=== PATIENT | female | born 1975 | race Caucasian/White ===

== ENCOUNTER 2020-03-17 07:00 | Emergency (ER) | payer BC, SELFPAY ==
[2020-03-17 07:01] VITALS: BP 176/81; PULSE 77; RESP 16; TEMP 36.9; O2SAT 98; BMI 32.9
--- NOTE | 2020-03-17 07:18 | XR_ITS ---
PROCEDURE: XR CHEST 2V CLINICAL HISTORY: cough COMPARISON: No exams were available for comparison FINDINGS: The cardiomediastinal silhouette and pulmonary vascularity are within normal limits. The lungs are clear without infiltrates, suspicious nodules, or pleural effusions. No acute bony abnormalities. IMPRESSION: No acute findings. Dictated by: Dr. Eduardo Huitron MD 03/17/2020 07:53 Dr. Eduardo Huitron MD in [place] 03/17/2020 07:53
[2020-03-17 07:30] LABS: Basophils % 0.3 % (0.1-2.0); Eosinophils # 0.1 K/mm3 (0.0-0.4); Eosinophils % 1.7 % (0.1-12.0); Hematocrit 27.9 % (37.0-47.0); Lymphocytes # 1.5 K/mm3 (0.7-4.5); Mean Corpuscular HGB Conc 28.6 g/dL (31.8-35.4); Mean Corpuscular Hemoglobin 18.8 pg (27.0-31.2); Mean Corpuscular Volume 65.6 fl (81-99); Mean Platelet Volume 7.5 fl (7.4-10.4); Monocytes # 0.3 K/mm3 (0.1-1.0); Monocytes % 8.2 % (1.7-9.3); Neutrophils # 1.8 K/mm3 (1.8-7.8); Neutrophils % 49.8 % (37.0-80.0); Platelet Count 269 K/mm3 (142-424); Red Blood Count 4.25 M/mm3 (4.20-5.40); Red Cell Distribution Width 17.1 % (11.5-17.5); White Blood Count 3.6 K/mm3 (4.8-10.8)
[2020-03-17 07:33] LABS: Chloride 105 mmol/L (98-107); Potassium 3.6 mmoL/L (3.5-5.1); Sodium 137 mmol/L (136-145)
[2020-03-17 07:35] LABS: Blood Urea Nitrogen 7 mg/dl (7-17); Creatinine Clearance Estimated 166 mL/min (50-200); Estimated Glomerular Filt Rate 108 ml/min (>60); GFR (African American) 130 ML/MIN (>60)
--- NOTE | 2020-03-17 07:35 | PC.NURSE ---
Dr. Baptiste notified of hgb.
[2020-03-17 07:36] LABS: Alanine Aminotransferase 26 U/L (12-78); Albumin Level 4.3 g/dl (3.5-5.0); Albumin/Globulin Ratio 1.3 (1.1-1.8); Alkaline Phosphatase 97 U/L (38-126); Anion Gap 14.6 mEq/L (5-15); Aspartate Amino Transferase 32 U/L (14-36); Bilirubin,Total 0.4 mg/dl (0.2-1.3); Calcium 9.1 mg/dl (8.4-10.2); Carbon Dioxide 21 mmol/L (22.0-30.0); Globulin 3.4 g/dL (1.3-3.2); Glucose 111 mg/dl (74-100); Total Protein,Serum 7.7 g/dl (6.3-8.2)
[2020-03-17 07:39] VITALS: BP 125/68; PULSE 69; RESP 20; O2SAT 95
--- NOTE | 2020-03-17 08:30 | [facility].EDGENADL ---
ED Disposition Clinical Impression: Viral infection Upper respiratory infection Qualifiers: URI type: unspecified viral URI Qualified Code(s): J06.9 - Acute upper respiratory infection, unspecified Disposition: Home, Self-Care Condition on Discharge: Good Instructions: DI for Acute Bronchitis Referrals: Felix Adamson MD [Primary Care Provider] - - Critical Care Critical Care Time: No Attestation: On 03/17/20, the high probability of a clinically significant, sudden or life threatening deterioration of the following system(s) required my full and direct attention, intervention and personal management. The time I documented below is in addition to time spent performing reported procedures but includes the following listed in this critical care notation. Medical Decision Making - Judd Inquiry Pt receiving controlled substance: No Judd was queried for this patient: No Vital Signs: 03/17/20 07:01 03/17/20 07:39 Temperature 98.4 F Temperature Source Oral Pulse Rate [Left Radial] 77 69 Respiratory Rate 16 20 Blood Pressure [Right Arm] 176/81 H 125/68 Blood Pressure Mean [Right Arm] 112 87 Blood Pressure Source [Right Arm] Automatic Cuff Automatic Cuff Blood Pressure Position [Right Arm] Sitting Sitting 02 Sat by Pulse Oximetry 98 95 Oxygen Delivery Method Room Air - Lab Data Lab Results 03/17/20 07:10: WBC 3.6 L, RBC 4.25, Hgb 8.0 L, Hct 27.9 L, MCV 65.6 L, MCH 18.8 L, MCHC 28.6 L, RDW 17.1, Plt Count 269, MPV 7.5, Neut % (Auto) 49.8, Lymph % (Auto) 40.0, Sutton % (Auto) 8.2, Eos % (Auto) 1.7, Baso % (Auto) 0.3, Neut # (Auto) 1.8, Lymph # (Auto) 1.5, Sutton # (Auto) 0.3, Eos # (Auto) 0.1, Baso # (Auto) 0.0 03/17/20 07:10: Sodium 137, Potassium 3.6, Chloride 105, Carbon Dioxide 21 L, Anion Gap 14.6, BUN 7, Creatinine 0.60, Estimated Creat Clear 166, Estimated GFR 108, Est GFR ( Amer) 130, Glucose 111 H, Calcium 9.1, Total Bilirubin 0.4, AST 32, ALT 26, Alkaline Phosphatase 97, Total Protein 7.7, Albumin 4.3, Globulin 3.4 H, Albumin/Globulin Ratio 1.3 Result diagrams: 03/17/20 07:10 03/17/20 07:10 Orders (Tests/Meds): ED MEDICATIONS Generic Name Dose Route Start Last Admin Trade Name Freq PRN Reason Stop Dose Admin Sodium Chloride 1,000 mls @ 999 mls/hr 03/17/20 07:30 03/17/20 07:27 Sod Chlor 0.9% 1000ml Bag IV 03/17/20 08:30 999 mls/hr .[id number] BUBBA Administration Discontinued Medications Generic Name Dose Route Start Last Admin Trade Name Freq PRN Reason Stop Dose Admin Dexamethasone Sodium Phosphate 10 mg 03/17/20 07:20 03/17/20 07:24 Dexamethasone 4mg/Ml 1ml Vial IV 03/17/20 07:21 10 mg ONCE ONE Administration Ondansetron HCl 4 mg 03/17/20 07:22 03/17/20 07:24 Ondansetron 4mg/2ml Vial IV 03/17/20 07:23 4 mg ONCE ONE Administration ORDERS Category Date Time Status Covid-19 Nasal PCR ([facility]) Routine Lab 03/17/20 07:15 Received - Radiology Data #1 Image(s): Chest Image Reviewed: Yes I reviewed the patient's radiology results Preliminary Findings: Normal/NAD Medical Decision Narrative: 44yo F evaluated for Covid testing. Patient is in no acute distress on presentation. Patient is already been here for an hour and 20 minutes prior to my arrival. Labs are unremarkable except for anemia of unknown etiology or duration. Chest x-ray is negative. At this point the patient is stable and can be discharged home and called with her Covid result. General Adult HPI - General Chief complaint: Upper Respiratory Infection Stated complaint: Congestion Time Seen by Provider: 03/17/20 08:05 Mode of Arrival: Ambulatory Limitations: No Limitations Description of Symptoms (Recalled from ER Triage Doc. by RN): Pt c/o congestion, dry/hacking cough, and diarrhea since wednesday 03/14. Pt denies SOA, fever, N/V, sore throat, loss of taste or smell. - History of Present Illness HPI narrative: 44yo F directed to the emergency department by he
[2020-03-17 08:33] VITALS: BP 154/67; PULSE 63; RESP 20; O2SAT 97
[2020-03-17 08:43] VITALS: BP 154/67; PULSE 87; RESP 18; TEMP 36.7; O2SAT 99
--- NOTE | 2020-03-17 13:41 | PC.NURSE ---
Attempted to call pt listed number 3 times with no answer, answering machine not available
--- NOTE | 2020-03-17 13:43 | PC.NURSE ---
Number listed to notified pt of covid results is not a working number
--- NOTE | 2020-03-17 15:07 | PC.NURSE ---
Pt called for results and notified of her positive covid and quarantine information.
== END 2020-03-17 08:45 | disposition home or self-care (01) ==
PROVIDERS: Emergency Provider Emergency Medicine; PCP Internal Medicine Adolescent Medicine
DX: U07.1 COVID-19 (principal)
CPT/HCPCS: 71046; 80053; 85025; 96365; 96375; 99283; J2405; U0003

== ENCOUNTER 2020-03-27 15:52 | Emergency (ER) | payer BC, SELFPAY ==
[2020-03-27 17:01] VITALS: BP 148/87; PULSE 77; RESP 17; TEMP 36.7; O2SAT 99; BMI 32.4
--- NOTE | 2020-03-27 17:03 | [facility]H.EDUTC ---
[facility] [place] Disposition Clinical Impression: Encounter for laboratory testing for COVID-19 virus Disposition: Home, Self-Care Condition on Discharge: Good Instructions: Preventing the Spread of Coronavirus Discharge Instructions Additional Instructions: You were tested for today for COVID19 your test result should be back in the next 24-48 hours, you may call to the [facility] to see if your test results are back in the next 48 hours [phone] [facility] hours are 9am-9pm You was given a handout with instructions for Self Quarantine and Self isolation for while you wait on test results and what to do if they are positive If you are positive the Health Dept will be contacting you also You may return to work as directed by Health Dept Referrals: Felix Adamson MD [Primary Care Provider] - As needed Forms: Work/School Release Time of Disposition: 17:06 Medical Decision Making - Judd Inquiry Pt receiving controlled substance: No Judd was queried for this patient: No Vital Signs: 03/27/20 17:01 Temperature 98.1 F Temperature Source Oral Pulse Rate [Left] 77 Respiratory Rate 17 Blood Pressure [Right Arm] 148/87 H Blood Pressure Mean [Right Arm] 107 Blood Pressure Source [Right Arm] Automatic Cuff Blood Pressure Position [Right Arm] Sitting 02 Sat by Pulse Oximetry 99 Oxygen Delivery Method Room Air Orders (Tests/Meds): ORDERS Category Date Time Status Covid-19 Nasal PCR Sendout [facility] 03/27/20 16:25 Received [facility] [place] HPI - General Stated complaint: covid test Time Seen by Provider: 03/27/20 17:03 Mode of Arrival: Ambulatory Source of Information: Patient Limitations: No Limitations Description of Symptoms (Recalled from Triage Doc. by RN): Covid testing HEENT Symptoms (Recalled from RN notes): No Resp Symptoms (Recalled from RN notes): No Skin Symptoms (Recalled from RN notes): No MS Symptoms (Recalled from RN notes): No Functional Status (Recalled from RN notes): wnl - History of Present Illness Provider Complaint: Patient states that she has been on quarantine due to positive COVID test and [facility] Dept told her today that she was cleared and can come out of quarantine but her work wanted her to get tested for COVID again before returning to work so she came in today to get tested - Related Data Home Medications Medication Instructions Recorded Confirmed No Known Home Medications 03/17/20 03/17/20 Allergies Allergy/AdvReac Type Severity Reaction Status Date / Time No Known Allergies Allergy Verified 03/17/20 07:16 - Worker's Comp Is this a Worker's Comp case?: No Is this an [facility] Worker's Comp?: No Is this a [facility] Worker's Comp?: No [facility] History - Hepatitis A Screen Drug use history?: No High risk sexual behaviors?: No History of sexually transmitted infection?: No Currently employed?: No Childcare worker?: No Do you have indoor plumbing?: Yes Do you have electricity?: Yes Attestation statement:: This patient has been screened for Hepatitis A risk factors. I have reviewed the patient's past medical history: Yes - Social History Alcohol Intake: never Occupational Status: employed ROS Obtained: Yes All systems reviewed & no additional complaints, Yes Systems reviewed as appropriate & no additional complaints - Constitutional Constitutional: Reports system reviewed and no additional complaints, except as docu, Denies body ache, Denies chills, Denies fever(s), Denies headache(s) - ENT Ears, Nose, Mouth, and Throat: Reports system reviewed and no additional complaints, except as docu, Denies otalgia, Denies sinus pain, Denies sinus pressure, Denies sore throat - Cardiovascular Cardiovascular: Reports system reviewed and no additional complaints, except as docu - Respiratory Respiratory: Yes system reviewed and no additional complaints, except as docu - Gastrointestinal Gastrointestingal: Reports: system reviewed and no additional complaints, except as docu Ph
[2020-03-27 17:04] VITALS: BP 148/87; PULSE 77; RESP 17; TEMP 36.7; O2SAT 99
[2020-03-29 13:50] LABS: Covid-19 Nasal PCR Sendout Lex POSITIVE
--- NOTE | 2020-03-29 13:54 | PC.NURSE ---
Patient notified of positive COVID results. Educated on quarantine.
== END 2020-03-27 17:08 | disposition home or self-care (01) ==
PROVIDERS: Emergency Provider Nurse Practitioner; PCP Internal Medicine Adolescent Medicine
DX: Z20.828 Contact with and (suspected) exposure to other viral communicable diseases (principal)
CPT/HCPCS: 99201; U0004

== ENCOUNTER → 2022-03-19 06:15 | Outpatient (CLI) | payer BC, SELFPAY | PROVIDERS: PCP Nurse Practitioner Family; Visit Provider Nurse Practitioner Family | DX: U07.1 COVID-19 (principal); R05.9 Cough, unspecified | CPT/HCPCS: C9803; U0003; U0005 ==